=== PATIENT | male | born 1965 | race African-American/Black ===

== ENCOUNTER 2019-04-24 20:09 | Emergency (ER) | payer MEDICAID, OTHER ==
[~2019-04-24] VITALS: Ht 185.4 cm; Wt 96.0 kg
[2019-04-24 23:00] VITALS: BP 140/86
== END 2019-04-25 01:34 | disposition home or self-care (01) ==
LOC: ER 20:33
DX: F10.129 Alcohol abuse with intoxication, unspecified (principal); F17.200 Nicotine dependence, unspecified, uncomplicated; F16.10 Hallucinogen abuse, uncomplicated; Y90.9 Presence of alcohol in blood, level not specified
CPT/HCPCS: 99283